=== PATIENT | female | born 1975 | race Asian ===

== ENCOUNTER → 2022-01-22 09:21 | Outpatient (CLI) | payer BC, SELFPAY ==
[2022-01-22 09:54] LABS: Add Manual Diff / Slide Review NO; Basophils Absolute Auto 100 /uL (0-100); Basophils Percent Auto 1.1 % (0-2); Eosinophils Absolute Auto 100 /uL (0-450); Eosinophils Percent Auto 2.4 % (2-4); Hematocrit 42.9 % (36-46); Hemoglobin 14.7 g/dL (12.0-16.0); Lymphocytes Absolute Auto 1200 /uL (1100-4500); Lymphocytes Percent Auto 26.1 % (25-40); Mean Corpuscular HGB Conc 34.2 % (30-36); Mean Corpuscular Hemoglobin 31.2 PG (26-34); Mean Corpuscular Volume 91.2 fL (80-100); Monocytes Absolute Auto 400 /uL (0-900); Monocytes Percent Auto 7.6 % (3-14); Neutrophils Absolute Auto 3000 /uL (1500-7000); Neutrophils Percent Auto 62.8 % (50-75); Platelet Count 275 X10^3/uL (150-400); Red Cell Distribution Width 12.7 % (11.6-14.8); White Blood Cell Count 4.8 X10^3/uL (4.5-11.0)
[2022-01-22 11:07] LABS: Appearance Urine UA CLEAR; Bilirubin Urine UA NEGATIVE (NEGATIVE); Color Urine UA YELLOW; Glucose Urine UA NEGATIVE (Negative); Ketones Urine UA NEGATIVE (NEGATIVE); Leukocyte Esterase Urine UA NEGATIVE (NEGATIVE); Nitrite Urine UA NEGATIVE (Negative); Occult Blood Urine UA TRACE-LYSED (Negative); Protein Urine UA NEGATIVE (Negative); Specific Gravity Urine UA <=1.005 (1.000-1.035); Urobilinogen Urine UA 0.2 E.U./dL (0.2)
[2022-01-22 11:20] LABS: Alanine Aminotransferase 17 IU/L (<35); Albumin 4.7 g/dL (3.5-5.0); Albumin Globulin Ratio 1.5 (1.0-2.8); Alkaline Phosphatase 60 U/L (38-126); Aspartate Aminotransferase 22 IU/L (14-36); BUN Creatinine Ratio 15.7 (6-22); Bilirubin Total 0.7 mg/dL (0.2-1.3); Blood Urea Nitrogen 11 mg/dL (7-17); Calcium 9.6 mg/dL (8.4-10.2); Carbon Dioxide 26 mmol/L (22-32); Chloride 102 mmol/L (98-107); Cholesterol 289 mg/dL (140-199); Estimated Glomerular Filt Rate > 60 mL/min (>60); Globulin 3.2 g/dL (1.7-4.1); Glucose 101 mg/dL (70-100); HDL Cholesterol 82 mg/dL (40-60); HEMOLYSIS < 15 (0-50); LDL Cholesterol Calculated 166 mg/dL (<100); Potassium 4.1 mmol/L (3.4-5.1); Sodium 139 mmol/L (137-145); Total Protein 7.9 g/dL (6.3-8.2); Triglycerides 205 mg/dL (35-150)
[2022-01-22 11:22] LABS: pH Urine UA 6.5 (4.5-8.0)
[2022-01-22 11:25] LABS: RBC Urine None Seen (0-5/HPF)
[2022-01-22 11:26] LABS: Bacteria Urine None Seen; Culture Indicated Urine Cult Not Indicated; Transitional Epi Cells Urine 1-5/HPF (0-5/HPF); WBC Urine None Seen (0-5/HPF)
[2022-01-22 11:50] LABS: TSH w/ Reflex to FT4 1.67 uIU/mL (0.47-4.68)
== END ==
PROVIDERS: PCP Family Medicine; Referring Provider Family Medicine; Visit Provider Family Medicine
DX: K57.90 Diverticulosis of intestine, part unspecified, without perforation or abscess without bleeding (principal); Z12.11 Encounter for screening for malignant neoplasm of colon; G89.29 Other chronic pain; L30.9 Dermatitis, unspecified; M54.9 Dorsalgia, unspecified; R51.9 Headache, unspecified; R39.15 Urgency of urination
CPT/HCPCS: 36415; 80053; 80061; 81001; 84443; 85025

== ENCOUNTER 2022-05-16 00:20 | Emergency (ER) | payer BC, SELFPAY ==
[2022-05-16] VITALS (12 sets, daily range): BP systolic 139–154; BP diastolic 80–88; PULSE 76–95; RESP 16–18; TEMP 36.5; O2SAT 99–100
--- NOTE | 2022-05-16 00:35 | ED_ITS ---
HPI - Female Genitourinary General Chief complaint: Vaginal Bleeding Stated complaint: miscarried and is bleeding all over Time Seen by Provider: 05/16/22 00:30 History of Present Illness HPI Narrative: 47-year-old female nonsmoker with noncontributory medical history presents with her and son and a chief complaint of cramping and heavy vaginal bleeding over the course of the day. She is a at about 10 weeks and states that she had been spotting over the course of the day but things really ramped up over the past few hours and she is saturating a pad about every 15 minutes. She is feeling fatigued and weak. She denies chest pain or shortness of breath. She denies nausea, vomiting or diarrhea. She is not yet had any OB care for this and does not know her blood type. She last ate about 1 hour ago Related Data Previous Rx's Medication Instructions Recorded clotrimazole 1 % topical cream 1 gm topical BID ##30 12/13/16 triamcinolone acetonide 0.5 % 1 dirk topical BID ##30 12/13/16 topical ointment Allergies Allergy/AdvReac Type Severity Reaction Status Date / Time No Known Drug Allergies Allergy Unverified 07/15/21 14:32 Review of Systems Review of Systems Narrative: GENERAL: Denies chills, fatigue, malaise, fever, sweats. HEENT: Denies sinus pain, ear pain, sore throat, difficulty swallowing, dizziness. RESPIRATORY: Denies dyspnea, cough, wheezing, hemoptysis, sputum. CARDIOVASCULAR: Denies chest pain, palpitations, orthopnea, edema, GASTROINTESTINAL: Denies nausea, vomiting, abdominal pain, diarrhea, constipation, melena. : See HPI MUSCULOSKELETAL: denies weakness, joint pain, or bony pain SKIN: Denies rash, skin lesions, or other NEUROLOGIC: Denies weakness, headache, numbness, change in speech, confusion, seizures, incoordination. PSYCHIATRIC: No concerning psychosocial issues. 12 point review of systems is negative except for those stated above Patient History Medical History Chronic back pain Chronic headaches Diverticulosis Eczema Family History Father Heart disease Hyperlipidemia Mother Hyperlipidemia Exam Narrative Exam Narrative: GENERAL: [47] year old patient appears stated age. Well-developed patient, in mild distress. HEAD: Atraumatic. Normocephalic. EYES: Pupils equal round and reactive. Extraocular motions intact. No scleral icterus. No injection or drainage. ENT: Nose without bleeding, purulent drainage. Throat without erythema, tonsillar hypertrophy or exudate. Airway patent. NECK: Trachea midline. Non tender CARDIOVASCULAR: Regular rate and rhythm without murmurs, gallops, or rubs. RESPIRATORY: Clear to auscultation. Breath sounds equal bilaterally. No wheezes, rales, or rhonchi. GASTROINTESTINAL: Abdomen soft, non-tender, nondistended. PELVIC: Large amount of bright red blood feels the vaginal vault, pours out and onto the floor, speculum replaced and blood fills the entire field quite quickly EXTREMITIES: No edema or joint tenderness. BACK: Nontender without deformity or crepitance. No flank tenderness. NEURO: AOx3. SKIN: No rash or erythema of visible areas Initial Vital Signs Initial Vital Signs: Vital Signs Temperature 97.7 F 05/16/22 00:32 Pulse Rate 76 05/16/22 00:32 Respiratory Rate 16 05/16/22 00:32 Blood Pressure 154/88 H 05/16/22 00:32 Pulse Oximetry 100 05/16/22 00:32 Oxygen Delivery Method 05/16/22 00:32 Course Orders Ordered: ED Orders 05/16/22 00:40 US pelvic complete Stat ABO RH Type Stat Complete Blood Count AUTO DIFF Stat Comprehensive Metabolic Panel Stat HCG Quantitative /Beta subunit Stat 05/16/22 01:07 COVID19 -Nasal RAPID/Pre-Proc Stat Oxytocin 20 unit/ Lactated (Ringer's) 1,002 mls @ 1,000 mls/hr IV NOW VIKAS Last Admin: 05/16/22 03:19 Dose: 1,000 mls/hr Documented By: JEN Discontinued Medications Tranexamic Acid 1,000 mg/ (Sodium Chloride) 100 mls @ 200 mls/hr IV NOW ONE Stop: 05/16/22 03:53 Methylergonovine Maleate (Methylergonovine 0.2 Mg/Ml Vial) 0.2 mg IM NOW ONE Stop: 05/16/22 02:28 Last Admin: 05/16/22 03:10 Dose: 0.2 mg Documented By: JEN Misoprostol (Misoprostol 200 Mcg Tablet) 800 mcg GA NOW ONE Stop: 05/16/22 02:28 Last Admin: 05/16/22 03:10 Dose: 800 mcg Documented By: JEN Reevaluation(s) Reevaluation #1: Patient has received all of recommended medications by Gynecology, she continues to bleed heavy and is saturated a pad in the next 20 minutes. Consultations Consultation #1: Discussed with on-call OB, after discussing history and physical exam as well as labs, ultrasound he recommends Pitocin 20 in 1 L of fluid, Methergine, TXA, Cytotec and re-evaluation in 30 minutes. Consultation #2: Called Dr. Hinojosa back after relative failure of medical management, he requests patient be kept NPO, suction at bedside and he will come see her Vital Signs Vital signs: Vital Signs - 8 hr 05/16/22 00:32 05/16/22 00:36 05/16/22 01:00 Temperature 97.7 F Pulse Rate 76 81 86 Respiratory Rate 16 Blood Pressure 154/88 H Pulse Oximetry 100 100 99 Oxygen Delivery Method Room Air 05/16/22 02:24 05/16/22 02:24 05/16/22 02:30 Temperature Pulse Rate 92 H 92 H Respiratory Rate Blood Pressure 139/86 Pulse Oximetry 99 99 Oxygen Delivery Method 05/16/22 03:00 Temperature Pulse Rate 92 H Respiratory Rate Blood Pressure Pulse Oximetry 99 Oxygen Delivery Method MDM - Female Genitourinary Lab Data Result diagrams: 05/16/22 00:40 05/16/22 00:40 Labs: Lab Results 05/16/22 05/16/22 05/16/22 Range/Units 00:40 00:40 00:40 WBC 9.5 (4.5-11.0) X10^3/uL RBC 4.22 (4.0-5.2) X10^6/uL Hgb 13.1 (12.0-16.0) g/dL Hct 38.5 (36-46) % MCV 91.3 (80-100) fL MCH 31.1 (26-34) PG MCHC 34.1 (30-36) % RDW 12.6 (11.6-14.8) % Plt Count 305 (150-400) X10^3/uL Neut % (Auto) 74.0 (50-75) % Lymph % (Auto) 16.4 L (25-40) % [place] % (Auto) 7.1 (3-14) % Eos % (Auto) 1.6 L (2-4) % Baso % (Auto) 0.9 (0-2) % Neut # (Auto) 7000 (7381-7666) /uL Lymph # (Auto) 1600 (0297-3190) /uL [place] # (Auto) 700 (0-900) /uL Eos # (Auto) 200 (0-450) /uL Baso # (Auto) 100 (0-100) /uL Sodium (137-145) mmol/L Potassium (3.4-5.1) mmol/L Chloride (98-107) mmol/L Carbon Dioxide (22-32) mmol/L BUN (7-17) mg/dL Creatinine (0.52-1.04) mg/dL Estimated GFR (>60) mL/min BUN/Creatinine Ratio (6-22) Glucose (70-100) mg/dL Calcium (8.4-10.2) mg/dL Total Bilirubin (0.2-1.3) mg/dL AST (14-36) IU/L ALT (<35) IU/L Alkaline Phosphatase (38-126) U/L Total Protein (6.3-8.2) g/dL Albumin (3.5-5.0) g/dL Globulin (1.7-4.1) g/dL Albumin/Globulin Ratio (1.0-2.8) HCG, Quant 6348.8 mIU/mL SARS-CoV-2 (PCR) (Negative) Blood Type B Positive 05/16/22 05/16/22 Range/Units 00:40 01:07 WBC (4.5-11.0) X10^3/uL RBC (4.0-5.2) X10^6/uL Hgb (12.0-16.0) g/dL Hct (36-46) % MCV (80-100) fL MCH (26-34) PG MCHC (30-36) % RDW (11.6-14.8) % Plt Count (150-400) X10^3/uL Neut % (Auto) (50-75) % Lymph % (Auto) (25-40) % [place] % (Auto) (3-14) % Eos % (Auto) (2-4) % Baso % (Auto) (0-2) % Neut # (Auto) (3541-6285) /uL Lymph # (Auto) (1904-5805) /uL [place] # (Auto) (0-900) /uL Eos # (Auto) (0-450) /uL Baso # (Auto) (0-100) /uL Sodium 134 L (137-145) mmol/L Potassium 3.6 (3.4-5.1) mmol/L Chloride 102 (98-107) mmol/L Carbon Dioxide 21 L (22-32) mmol/L BUN 12 (7-17) mg/dL Creatinine 0.57 (0.52-1.04) mg/dL Estimated GFR > 60 (>60) mL/min BUN/Creatinine Ratio 21.1 (6-22) Glucose 134 H (70-100) mg/dL Calcium 9.3 (8.4-10.2) mg/dL Total Bilirubin 0.4 (0.2-1.3) mg/dL AST 19 (14-36) IU/L ALT 18 (<35) IU/L Alkaline Phosphatase 68 (38-126) U/L Total Protein 7.3 (6.3-8.2) g/dL Albumin 4.1 (3.5-5.0) g/dL Globulin 3.2 (1.7-4.1) g/dL Albumin/Globulin Ratio 1.3 (1.0-2.8) HCG, Quant mIU/mL SARS-CoV-2 (PCR) Negative (Negative) Blood Type Imaging Data US - OB: Radiologist's Impression: 47 ? Brady Harrington, DO [facility] Routine Call Back Main ED ?7? My List ?8? Waiting ?0? Surge ED ?0? R04? Leth? Ole? 85 M? With Doctor? 2h 53m? 2-Emergent? ?? Chest Pain? Chest pain? ?? 05/15/22 23:53? REG ER? Draft? Brady Shah Order BP 165/78 Pulse 61 Resp 23 Temp 97.7 F O2 Sat 99% ?Complete B... ?Chem Magnesium ... Partial Th... Lipase Sta... ?Prothrombi... ?Troponin &... Imaging MAR NPO Diet EKG-12 Peggy... Cardiac mo... Troponin &... R05? Tauai? Esera? 56 M? With Doctor? 1h 26m? 3-Urgent? ?? Upper Respiratory Symptoms? diabetic coughing, nausa? ISO, C19S/S? 05/16/22 01:02? REG ER? Draft? Bradyaby Harrington Ignacio Shah can't run ketones machine down Order BP Pulse 76 Resp 14 Temp O2 Sat 99% (RA) ?Chem Ketones (B... ?Covid-19 +... ?Complete B... POC/RACH MAR Venous Blo... R06? Lakhwinder Jr? Lorenze? 73 M? Admitted Observation Patient? 5h 21m? 2-Emergent? ?? Shortness of Breath/Dyspnea? SOB, Congestive heart failure? C19S/S? 05/15/22 21:08? ADM JAYME? Signed? Brady Harrington Helen Morrissey in a 90 bed Order BP 122/76 Pulse 104 Resp 38 Temp O2 Sat 90% Covid-19 +... ?Complete B... Magnesium ... ?Chem ?Lactate (L... ?NT-proBNP ... ?Troponin &... Imaging ?D Dimer St... ?Hemoglobin... Procalcito... MAR EKG-12 Peggy... Microbiolo... Low Sodium... Education,... Fluid Rest... NT-proBNP ... Complete B... Complete B... Complete B... Complete B... Chem Chem Chem Chem Magnesium ... Lipid Pane... Magnesium ... Magnesium ... Magnesium ... Troponin I... Troponin I... Troponin I... Prothrombi... Thyroid St... EKG Consult to... RT Consult... Carbohydra... Urinalysis... POC/RACH Lactate (L... Respirator... Arterial B... Chem Lactate (L... Cardiac mo... Code Statu... Admit as R... Cardiac mo... Consult to... Admit as R... MRSA (Nasa... R07? Tauai? Esera? 5 M? Ready for Discharge? 1h 33m? 4-Less Urgent? ?? Upper Respiratory Symptoms? coughing, has asthma? C19S/S? 05/16/22 01:02? REG ER? Draft? Brady [place] Ignacio D Order BP Pulse 105 Resp 24 Temp 97.7 F O2 Sat 100% (RA) Covid-19 +... MAR R08? Nerosemarie? Lynnette? 56 F? With Doctor? 13m? 4-Less Urgent? ?? Upper Respiratory Symptoms? having hard time breathing? C19S/S? 05/16/22 02:21? REG ER? No Document? Brady [place] Order BP 128/68 Pulse 91 Resp 18 Temp 98.9 F O2 Sat 96% (RA) R10? [place]? Junaid? 49 M? With Doctor? 1h 15m? 4-Less Urgent? ?? Nasal Problem? nose bleed that wont stop 20 plus min? ?? 05/16/22 01:19? REG ER? No Document? Brady [place] Order BP 103/62 Pulse 60 Resp 18 Temp O2 Sat 100% (RA) R12? Jesus? Luis? 47 F? Pending Admission? 2h 10m? 3-Urgent? ?? Vaginal Bleeding? miscarried and is bleeding all over? Preg, ISO? 05/16/22 00:30? REG ER? Draft? Brady [place] Order BP 154/88 Pulse 76 Resp 16 Temp 97.7 F O2 Sat 100% (RA) ABO RH Typ... ?Complete B... ?Chem HCG Quanti... COVID19 -N... Imaging MAR POC/RACH Imaging - US OB <= 14 weeks fetus; US pelvic complete Luis Lee??47??F??1975 ? Allergy/Adv: No Known Drug Allergies (More??) Close Results Imaging ACTIVITY DATE EXAM STATUS AUTHOR 05/16/22 00:40 Pelvis Ultrasound Signed Kulwant De Jesus Orders Without Results ORDER STATUS ORDER START ORDER DETAIL US OB <= 14 weeks fetus Cancelled 05/16/22 00:40 Imaging Reports Close Pelvis Ultrasound (Signed) Kulwant De Jesus - 05/16/22 Launch?[address] [address] Ultrasound Report Signed Patient: Luis Lee MR#: [id number] : 1975 Acct:[id number] Age/Sex: 47 / F Date of Service: 05/16/22 Loc: ED Accession Number: [id number] ?? Procedure: US pelvic complete Ordering Provider: Brady Harrington D.O. PROCEDURE:? US PELVIC COMPLETE ? INDICATIONS:? 1O WEEKS ; HEAVY BLEEDING ? TECHNIQUE:? Real-time scanning was performed of the pelvic organs, with image documentation.? Additional endovaginal scanning was necessary due to incomplete visualization of the adnexal and endometrial structures by transabdominal scanning.? ? COMPARISON:? None. ? FINDINGS:? ?? Uterus:? Uterus is anteverted and measures 12.4 x 5.7 x 7.4 cm.? The endometrium measures up to 1.7 cm in thickness without associated internal vascularity on color Doppler interrogation.? No intrauterine is identified. ? Ovaries:? The ovaries were not visualized.? No adnexal masses identified. ? Other:? No pathologic free abdominal or pelvic fluid. ? ? IMPRESSION:? ? 1. Thickening of the endometrium without an intrauterine identified.? Findings are suggestive of a spontaneous in progress.? Recommend clinical follow-up and repeat ultrasound if indicated. ? ? We strive to produce accurate, complete, and clear reports of imaging services. To assist us in improving patient care, this report was composed using standard report templates and voice recognition software. Therefore, it may contain abnormal punctuation, insertions and/or omissions. Occasional wrong-word or sound-alike substitutions may occur. Though we review the report and make efforts to correct it, we do recommend that the report be read carefully in proper context to recognize any text inaccuracies. ? ? Dictated by: Kulwant De Jesus M.D. on 05/16/2022 at 1:36 ? ? Approved by: Kulwant De Jesus M.D. on 05/16/2022 at 1:39 ? Discharge Plan Departure Prescriptions: No Action triamcinolone acetonide 0.5 % ointment 1 dirk Topical BID Qty: 30 0RF clotrimazole 1 % cream 1 gm Topical BID Qty: 30 0RF Referrals: Biju Johnson MD [Primary Care Provider] -
--- NOTE | 2022-05-16 00:40 | DI.US.S_ITS ---
PROCEDURE: US PELVIC COMPLETE INDICATIONS: 1O WEEKS ; HEAVY BLEEDING TECHNIQUE: Real-time scanning was performed of the pelvic organs, with image documentation. Additional endovaginal scanning was necessary due to incomplete visualization of the adnexal and endometrial structures by transabdominal scanning. COMPARISON: None. FINDINGS: Uterus: Uterus is anteverted and measures 12.4 x 5.7 x 7.4 cm. The endometrium measures up to 1.7 cm in thickness without associated internal vascularity on color Doppler interrogation. No intrauterine is identified. Ovaries: The ovaries were not visualized. No adnexal masses identified. Other: No pathologic free abdominal or pelvic fluid. IMPRESSION: 1. Thickening of the endometrium without an intrauterine identified. Findings are suggestive of a spontaneous in progress. Recommend clinical follow-up and repeat ultrasound if indicated. We strive to produce accurate, complete, and clear reports of imaging services. To assist us in improving patient care, this report was composed using standard report templates and voice recognition software. Therefore, it may contain abnormal punctuation, insertions and/or omissions. Occasional wrong-word or sound-alike substitutions may occur. Though we review the report and make efforts to correct it, we do recommend that the report be read carefully in proper context to recognize any text inaccuracies. Dictated by: Kulwant De Jesus M.D. on 05/16/2022 at 1:36 Approved by: Kulwant De Jesus M.D. on 05/16/2022 at 1:39
[2022-05-16 00:59] LABS: Add Manual Diff / Slide Review NO; Basophils Absolute Auto 100 /uL (0-100); Basophils Percent Auto 0.9 % (0-2); Eosinophils Absolute Auto 200 /uL (0-450); Eosinophils Percent Auto 1.6 % (2-4); Hematocrit 38.5 % (36-46); Hemoglobin 13.1 g/dL (12.0-16.0); Lymphocytes Absolute Auto 1600 /uL (1100-4500); Lymphocytes Percent Auto 16.4 % (25-40); Mean Corpuscular HGB Conc 34.1 % (30-36); Mean Corpuscular Hemoglobin 31.1 PG (26-34); Mean Corpuscular Volume 91.3 fL (80-100); Monocytes Absolute Auto 700 /uL (0-900); Monocytes Percent Auto 7.1 % (3-14); Neutrophils Absolute Auto 7000 /uL (1500-7000); Platelet Count 305 X10^3/uL (150-400); Red Blood Cell Count 4.22 X10^6/uL (4.0-5.2); Red Cell Distribution Width 12.6 % (11.6-14.8); White Blood Cell Count 9.5 X10^3/uL (4.5-11.0)
[2022-05-16 01:08] LABS: Alanine Aminotransferase 18 IU/L (<35); Albumin 4.1 g/dL (3.5-5.0); Albumin Globulin Ratio 1.3 (1.0-2.8); Alkaline Phosphatase 68 U/L (38-126); Aspartate Aminotransferase 19 IU/L (14-36); BUN Creatinine Ratio 21.1 (6-22); Bilirubin Total 0.4 mg/dL (0.2-1.3); Blood Urea Nitrogen 12 mg/dL (7-17); Calcium 9.3 mg/dL (8.4-10.2); Carbon Dioxide 21 mmol/L (22-32); Chloride 102 mmol/L (98-107); Estimated Glomerular Filt Rate > 60 mL/min (>60); Globulin 3.2 g/dL (1.7-4.1); Glucose 134 mg/dL (70-100); HEMOLYSIS 40 (0-50); Potassium 3.6 mmol/L (3.4-5.1); Sodium 134 mmol/L (137-145); Total Protein 7.3 g/dL (6.3-8.2)
[2022-05-16 01:24] LABS: COVID19 -Nasal RAPID Negative (Negative)
[2022-05-16 01:29] LABS: HCG Quantitative /Beta subunit 6348.8 mIU/mL
[2022-05-16] MEDS: miSOPROStoL 200 MCG TABLET 800 MCG PR (03:10)
[2022-05-16] MEDS: METHYLERGONOVINE 0.2 MG/ML VIAL IM (03:10)
[2022-05-16] MEDS: OXYTOCIN IV (03:19)
[2022-05-16] MEDS: LACTATED RINGERS IV (03:19)
--- NOTE | 2022-05-16 03:23 | PC.NURSE ---
pad changed after pelvic exam, changed now noted soaked along with 2 blue pads no clots noted
--- NOTE | 2022-05-16 03:45 | PC.NURSE ---
changed soaked pad with a grapefruit sized spot on the blue pad, pt up to the bsc without c/o dizziness
--- NOTE | 2022-05-16 04:56 | P.CONS_ITS ---
History of Present Illness Consult details Date Patient Seen: 05/16/22 Time Patient Seen: 04:57 Chief complaint: First trimester bleeding Requesting provider: Brady Harrington Narrative: Luis is a 47 yo A1 LMP 03/06/2022 presenting now at 10+1 weeks EGA with progressively heavy vaginal bleeding since late last evening. Patient in ED has received IV Pitocin 20U/1000cc IVF, .2 mg Methergine IM, TXA 1000 mg IV, and Cytotec 800 mcg [place] x 1 with decrease in her bleeding. Minimal cramping, so significant abdominal pain. Pelvic US in ED shows thickened but avascular endometrium w/ no IUP. BT B+. Meds Home Medications and Allergies Home Medications Medication Instructions Recorded Confirmed Type clotrimazole 1 % topical cream 1 gm topical BID ##30 12/13/16 Rx triamcinolone acetonide 0.5 % 1 dirk topical BID ##30 12/13/16 Rx topical ointment doxycycline hyclate 100 mg tablet 100 mg PO BID #10 tabs 05/16/22 Rx methylergonovine 0.2 mg tablet 0.2 mg PO QID 5 days #20 tabs 05/16/22 Rx (Methergine) Allergies Allergy/AdvReac Type Severity Reaction Status Date / Time No Known Drug Allergies Allergy Unverified 07/15/21 14:32 Review of Systems Review of Systems Narrative: Problem-specific ROS positives included in HPI. Exam Vital Signs (past 8 hours): - 05/16/22 00:32 05/16/22 00:36 05/16/22 01:00 Temperature 97.7 F Pulse Rate 76 81 86 Respiratory Rate 16 Blood Pressure 154/88 H Pulse Oximetry 100 100 99 Oxygen Delivery Method Room Air 05/16/22 02:24 05/16/22 02:24 05/16/22 02:30 Temperature Pulse Rate 92 H 92 H Respiratory Rate Blood Pressure 139/86 Pulse Oximetry 99 99 Oxygen Delivery Method 05/16/22 03:00 Temperature Pulse Rate 92 H Respiratory Rate Blood Pressure Pulse Oximetry 99 Oxygen Delivery Method Oxygen Delivery Method Room Air Const General: cooperative and comfortable Nutritional Appearance: average body habitus Orientation: alert and oriented x3 HENMT Head: normal to inspection, atraumatic and abrasion Ears: hearing grossly normal bilaterally Face and sinus: face symmetric Eyes General: appearance normal, both eyes and all related structures Conjunctivae: conjunctivae normal Sclera: sclerae normal EOM: EOM intact bilaterally Neck Neck: normal visual inspection Resp Effort & Inspection: normal respiratory effort and able to speak in complete sentences Cardio Rate: regular rate Rhythm: regular rhythm GI Inspection: normal to inspection Palpation: soft and no hepatosplenomegaly External Female Exam: normal external appearance and other (Blood on perineal surfaces) Speculum Exam - Vagina: other (Clots in vagina removed w/ suction and ring forceps) Speculum Exam - Cervix: cervical os open and other (Probed with ring forceps, no retained POC's) Bimanual Exam- Vagina & Uterus: other (Deferred) Bimanual Exam- Adnexa, other: other (Deferred) OB/External & Speculum: cervical os open Extrem General: no calf tenderness Psych Appearance: grossly normal Mental Status: mental status grossly normal Speech and Movement: speech and movement normal Mood: congruent mood Affect: normal affect Attitude: cooperative Thought Process: normal Thought Content: normal Judgment: judgment good Objective Labs Result Diagrams: 05/16/22 00:40 05/16/22 00:40 Labs: Laboratory Results - last 24 hr 05/16/22 05/16/22 05/16/22 00:40 00:40 00:40 WBC 9.5 RBC 4.22 Hgb 13.1 Hct 38.5 MCV 91.3 MCH 31.1 MCHC 34.1 RDW 12.6 Plt Count 305 Neut % (Auto) 74.0 Lymph % (Auto) 16.4 L [place] % (Auto) 7.1 Eos % (Auto) 1.6 L Baso % (Auto) 0.9 Neut # (Auto) 7000 Lymph # (Auto) 1600 [place] # (Auto) 700 Eos # (Auto) 200 Baso # (Auto) 100 Sodium Potassium Chloride Carbon Dioxide BUN Creatinine Estimated GFR BUN/Creatinine Ratio Glucose Calcium Total Bilirubin AST ALT Alkaline Phosphatase Total Protein Albumin Globulin Albumin/Globulin Ratio HCG, Quant 6348.8 SARS-CoV-2 (PCR) Blood Type B Positive 05/16/22 05/16/22 00:40 01:07 WBC RBC Hgb Hct MCV MCH MCHC RDW Plt Count Neut % (Auto) Lymph % (Auto) [place] % (Auto) Eos % (Auto) Baso % (Auto) Neut # (Auto) Lymph # (Auto) [place] # (Auto) Eos # (Auto) Baso # (Auto) Sodium 134 L Potassium 3.6 Chloride 102 Carbon Dioxide 21 L BUN 12 Creatinine 0.57 Estimated GFR > 60 BUN/Creatinine Ratio 21.1 Glucose 134 H Calcium 9.3 Total Bilirubin 0.4 AST 19 ALT 18 Alkaline Phosphatase 68 Total Protein 7.3 Albumin 4.1 Globulin 3.2 Albumin/Globulin Ratio 1.3 HCG, Quant SARS-CoV-2 (PCR) Negative Blood Type PFSH Medical History Chronic back pain Chronic headaches Diverticulosis Eczema Family History Father Heart disease Hyperlipidemia Mother Hyperlipidemia Tobacco & Substance Use Smoking Status: Never smoker Assessment & Plan Assessment and plan (1) Complete miscarriage: Status: Acute Plan Counseled re: expected course of recovery following SAB Precautionary symptoms reviewed PO Methergine .2 mg PO q 6 hrs. x 3 days PO Vibramycin 100 ng PO BID x 5 days Follow-up in my office TBA by my staff Time Spent With Patient Time with patient: 30 to 49 minutes with 50% spent counseling/coordinating care Critical Care time: I spent a total of 35 minutes of critical care time on this patient's care today; this time is exclusive of procedural time.
--- NOTE | 2022-05-16 05:02 | PC.NURSE ---
Dr Hinojosa in room to suction clots, pt tolerated procedure well, at bedside
[2022-05-16] MEDS: METHYLERGONOVINE 0.2 MG TABLET PO (05:18)
--- NOTE | 2022-05-16 17:19 | PC.NURSE ---
called prescription to [facility] [id number], pt request due to the other script. by melissa rn
== END 2022-05-16 05:40 | disposition home or self-care (01) ==
PROVIDERS: Emergency Provider Emergency Medicine; PCP Family Medicine
DX: O03.9 Complete or unspecified spontaneous abortion without complication (principal); Z20.822 Contact with and (suspected) exposure to COVID-19
CPT/HCPCS: 36415; 51798; 76830; 76856; 80053; 84702; 85025; 86900; 86901; 87635; 96365; 96366; 96372; 99282; 99284; C9803; J2210; J2590; S0191